=== PATIENT | female | born 1990 | race Caucasian/White ===

== ENCOUNTER → 2019-09-28 | Day surgery (SDC) | payer OTHER ==
--- NOTE | 2019-09-28 16:58 | OP ---
DATE OF OPERATION: 09/28/2019 PREOPERATIVE DIAGNOSIS: Left axillary subcutaneous mass. POSTOPERATIVE DIAGNOSIS: Left axillary subcutaneous mass. PROCEDURE: Left ultrasound-guided axillary mass core biopsy with clip placement. ANESTHESIA: Local. ATTENDING SURGEON: Angelia Sesay MD ESTIMATED BLOOD LOSS: Minimal. COMPLICATIONS: None. DESCRIPTION OF PROCEDURE: Patient was made aware of the risks and benefits of the procedure and consented. She was placed in a supine position. Under sterile conditions with 1% lidocaine for local anesthesia, a small valentin was made in the skin. Using a 13-gauge suction biopsy device via inferolateral approach under ultrasound guidance, multiple cores were obtained and submitted to Pathology. Likewise, under ultrasound guidance, an open core HydroMark clip was placed into the biopsy region. Well tolerated by patient. Steri-Strips and a sterile bandage was applied. We will contact her with results as soon as possible. ANGELIA SESAY M.D. [id number]
--- NOTE | 2019-09-29 12:14 | PATH ---
Surgical Pathology Report Patient Name: DREA LANDERS Med. Rec. #: [id number] /Age/Gender: 1990 (Age: 29) / F Account: [id number] Location: [facility] Taken: 09/28/2019 Received: 09/28/2019 Reported: 09/29/2019 Physicians: Angelia Sesay M.D. Specimen(s) Received LEFT AXILLARY BREAST CORE BIOPSY Clinical History Palpable mass Ultrasound findings: Probably benign Final Diagnosis LEFT AXILLARY CORE BIOPSY: BREAST TISSUE WITH LACTATING ADENOMA. Electronically Signed Grace Marin M.D. Gross Description Received in formalin labeled "left axilla," are 5 colvin-yellow, cylindrical portions of fibroadipose tissue ranging from 0.7-1.2 cm in length and averaging 0.2 cm in diameter. The specimens are submitted in toto in one cassette. Time to formalin fixation: Less than one minute Total formalin fixation time: Approximately 6 hours. /09/28/2019 [facility]/2019
== END | disposition home or self-care (01) ==
LOC: FRADUS-SUR 13:41
PROVIDERS: ATTEND Surgery Surgical Oncology
PROC: 0H9U3ZX Drainage of Left Breast, Percutaneous Approach, Diagnostic (ICD-10-PCS; principal; 2019-09-28)
DX: D24.2 Benign neoplasm of left breast (principal)
CPT/HCPCS: 19083; 76942-TC; 87899; 88305-TC; A4648